=== PATIENT | female | born 1985 | race American Indian/Alaskan Native ===

== ENCOUNTER 2021-05-17 15:49 | Emergency (ER) | payer SELFPAY ==
[2021-05-17 16:17] VITALS: BP 140/85
== END 2021-05-17 22:18 | disposition left against medical advice (07) ==
LOC: ED 15:49
DX: R21 Rash and other nonspecific skin eruption (principal); M79.89 Other specified soft tissue disorders; Z53.21 Procedure and treatment not carried out due to patient leaving prior to being seen by health care provider

== ENCOUNTER 2021-05-18 17:24 | Emergency (ER) | payer SELFPAY ==
--- NOTE | 2021-05-18 18:42 | Emergency Department Report ---
- General Chief complaint: Skin Rash Stated complaint: RASH ON ARM Time Seen by Provider: 05/18/21 18:15 Source: patient Mode of arrival: Ambulatory Limitations: No Limitations - History of Present Illness Initial comments: 35-year-old female presents to the ER today with complaints of rash to her right forearm. Patient states that the rash started to her right forearm 3 days ago, then this morning she noticed similar rash to the dorsal aspect of her left thigh. She described as a burning rash with what looks like small pustules. She states that she was told by her mom that it could be related to shingles. She denies any new contacts, such as new jewelry, new medications new soaps, new lotions or any other new contacts. She states that she has not been around anybody else with similar rash. She has not been camping or outside in the [facility]. She does have 2 dogs at home but no other animals. She denies any fever or chills. Denies similar rash in the past. MD complaint: rash -: days(s) (3) - Related Data Previous Rx's Medication Instructions Recorded Last Taken Type Ibuprofen [Motrin] 600 mg PO Q8H PRN #30 tablet 05/18/21 Unknown Rx Mupirocin [Bactroban 2%] 1 applic TP TID #1 tube 05/18/21 Unknown Rx cephALEXin [Keflex] 500 mg PO Q6HR #40 capsule 05/18/21 Unknown Rx Allergies Allergy/AdvReac Type Severity Reaction Status Date / Time No Known Allergies Allergy Unverified 05/17/21 16:11 Abscess Boil HPI - HPI Chief Complaint: Skin Rash Stated Complaint: RASH ON ARM Time Seen by Provider: 05/18/21 18:15 Home Medications: Previous Rx's Medication Instructions Recorded Last Taken Type Ibuprofen [Motrin] 600 mg PO Q8H PRN #30 tablet 05/18/21 Unknown Rx Mupirocin [Bactroban 2%] 1 applic TP TID #1 tube 05/18/21 Unknown Rx cephALEXin [Keflex] 500 mg PO Q6HR #40 capsule 05/18/21 Unknown Rx Allergies/Adverse Reactions: Allergies Allergy/AdvReac Type Severity Reaction Status Date / Time No Known Allergies Allergy Unverified 05/17/21 16:11 ED Review of Systems ROS: Stated complaint: RASH ON ARM Other details as noted in HPI Comment: All other systems reviewed and negative Constitutional: denies: chills, fever Respiratory: denies: cough, shortness of breath, SOB with exertion, SOB at rest, wheezing Cardiovascular: denies: chest pain, palpitations Skin: rash. denies: lesions, change in color, change in hair/nails, pruritus Neurological: denies: headache, weakness, numbness, paresthesias, confusion, abnormal gait, vertigo Psychiatric: denies: anxiety, depression, auditory hallucinations, visual hallucinations, homicidal thoughts, suicidal thoughts Hematological/Lymphatic: denies: easy bleeding, easy bruising, swollen glands ED Past Medical Hx - Past Medical History Previous Medical History?: Yes - Surgical History Past Surgical History?: Yes Additional Surgical History: C SECTION x4 - Medications Home Medications: Home Medications Medication Instructions Recorded Confirmed Last Taken Type Ibuprofen [Motrin] 600 mg PO Q8H PRN #30 tablet 05/18/21 Unknown Rx Mupirocin [Bactroban 2%] 1 applic TP TID #1 tube 05/18/21 Unknown Rx cephALEXin [Keflex] 500 mg PO Q6HR #40 capsule 05/18/21 Unknown Rx ED Physical Exam - General Limitations: No Limitations General appearance: alert, in no apparent distress - Head Head exam: Present: atraumatic, normocephalic, normal inspection - Respiratory Respiratory exam: Present: normal lung sounds bilaterally. Absent: respiratory distress, wheezes, rales, rhonchi - Cardiovascular Cardiovascular Exam: Present: regular rate, normal rhythm, normal heart sounds - Neurological Exam Neurological exam: Present: alert, oriented X3, CN II-XII intact, normal gait - Skin Skin exam: Present: rash (Erythematous, maculopapular, pustular rash noted to the dorsal aspect of the right forearm with warmth and some mild swelling; similar but milder rash noted to the anterior aspect of the left thigh. No streaking redness. No significant lymphangitis) ED Course Vital Signs 05/18/21 17:53 Temperature 98.4 F Pulse Rate 87 Respiratory 20 Rate Blood Pressure 154/86 [Right] O2 Sat by Pulse 100 Oximetry ED Medical Decision Making - Medical Decision Making Patient rash concerning for staph infection/cellulitis. She has no streaking or significant lymphangitis. Patient will be started on oral antibiotics as well as topical antibiotics. She was given ibuprofen for pain. She is currently not toxic, not ill-appearing and not in significant distress. She is afebrile and her remaining vital signs are stable. Discussed suspected diagnosis and treatment plan with patient. She expressed understanding agree with plan. Patient was stable at time of discharge. Critical care attestation.: If time is entered above; I have spent that time in minutes in the direct care of this critically ill patient, excluding procedure time. ED Disposition Clinical Impression: Pustular rash, Cellulitis Disposition: HOME / SELF CARE / HOMELESS Is pt being admited?: No Does the pt Need Aspirin: No Condition: Stable Instructions: Cellulitis, Adult, [id number] Additional Instructions: I recommend that you take the Keflex as prescribed and to completion. Keep the area clean with soap and water. Do not use alcohol or peroxide. Dry well after each cleaning then apply the Bactroban as prescribed. Take the ibuprofen as prescribed for pain. If your symptoms worsen return to the ER otherwise follow- up with your primary care doctor and/or bureau director. Prescriptions: Mupirocin [Bactroban 2%] 1 applic TP TID #1 tube cephALEXin [Keflex] 500 mg PO Q6HR #40 capsule Ibuprofen [Motrin] 600 mg PO Q8H PRN #30 tablet PRN Reason: Pain Referrals: DEWEY HULL MD [Staff Physician] - 3-5 Days Forms: Work/School Release Form(ED) Time of Disposition: 18:51
[2021-05-18 19:13] VITALS: BP 156/89
== END 2021-05-18 19:18 | disposition home or self-care (01) ==
LOC: ED 17:24
DX: L08.0 Pyoderma (principal); L03.113 Cellulitis of right upper limb; Z79.899 Other long term (current) drug therapy
CPT/HCPCS: 99282

== ENCOUNTER 2021-08-08 22:48 | Emergency (ER) | payer OTHER ==
[2021-08-09] MEDS ORDERED: IBUPROFEN 400 MG TAB PO ONE (07:00)
[2021-08-09] MEDS ORDERED: ACETAMINOPHEN 325 MG TAB PO ONE (07:00)
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
[2021-08-09 07:45] VITALS: BP 153/101
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
== END 2021-08-09 07:44 | disposition home or self-care (01) ==
LOC: ED 22:48
DX: R07.89 Other chest pain (principal); Z98.890 Other specified postprocedural states; Z79.899 Other long term (current) drug therapy; V87.7XXA Person injured in collision between other specified motor vehicles (traffic), initial encounter; Y93.89 Activity, other specified; Y92.488 Other paved roadways as the place of occurrence of the external cause; Y99.8 Other external cause status
CPT/HCPCS: 71046; 99283